=== PATIENT | male | born 1980 | race Caucasian/White ===

== ENCOUNTER 2019-03-08 22:59 | Observation (INO) | payer OTHER ==
[2019-03-08 23:56] LABS: Absolute Lymphocytes (CBC) 2.4 K/uL (0.7-4.9); Basophils % 0.8 % (0-1.3); Hematocrit 45.2 % (39.6-49.0); Lymphocytes % 28.1 % (15.3-44.8); MPV 10.7 fL (7.6-11.3); RBC Red Blood Cell Count 5.34 M/uL (4.33-5.43)
[2019-03-09 00:25] LABS: ALT/SGPT 84 U/L (12-78); AST/SGOT 29 U/L (15-37); Albumin 4.1 g/dL (3.4-5.0); Alkaline Phosphatase 51 U/L (45-117); BUN Blood Urea Nitrogen 20 mg/dL (7-18); Bicarbonate 31 mmol/L (21-32); Bilirubin Direct 0.2 mg/dL (0-0.2); Bilirubin Total 0.7 mg/dL (0.2-1.0); Glucose Level 132 mg/dL (74-106); Magnesium 2.2 mg/dL (1.8-2.4); NT PRO-BNP 26 pg/mL (<125); Protein, Total 7.3 g/dL (6.4-8.2); Sodium Level 139 mmol/L (136-145); Troponin (Emerg Dept Use Only) < 0.02 ng/mL (0.0-0.045)
[2019-03-09 00:26] LABS: Potassium 2.9 mmol/L (3.5-5.1)
[2019-03-09 00:27] LABS: Protime INR 0.97
--- NOTE | 2019-03-09 01:46 | EDPHYS ---
Physician Documentation [facility] Name: Chong Rosario Age: 39 yrs Sex: Male : 1980 Arrival Date: 03/08/2019 Time: 23:01 Bed 14 Private MD: ED Physician Akil Thomason HPI: 03/08 23:48 This 39 yrs old Male presents to ER via Ambulatory with complaints of Chest jm Pain. 23:48 The patient or guardian reports chest pain that is located primarily in the substernal [facility] area. The pain does not radiate. Associated signs and symptoms: Pertinent positives:. The chest pain is described as aching, sharp. Duration: The patient or guardian reports a single episode. Modifying factors: The symptoms are alleviated by nothing. the symptoms are aggravated by nothing. This is a 39 year old male with a history of htn that presents to the ED with complaints of left sided chest pain beginning last night along with lightheadedness. Patient states he was recently diagnosed with hypertension. Denies history of CAD, denies smoking. . Historical: - Allergies: 23:10 No Known Allergies; aa1 - Home Meds: 23:10 unknown BP medication [Active]; aa1 - PMHx: 23:10 Hypertension; aa1 - PSHx: 23:10 None; aa1 - Immunization history:: Flu vaccine is not up to date. - Social history:: Smoking status: Patient/guardian denies using tobacco. - Ebola Screening: : Patient denies exposure to infectious person Patient denies travel to an Ebola-affected area in the 21 days before illness onset. ROS: 23:48 Constitutional: Negative for fever, chills, and weight loss. jmm 23:48 Abdomen/GI: Negative for abdominal pain, nausea, vomiting, diarrhea, and constipation, Back: Negative for injury and pain. 23:48 Cardiovascular: Positive for chest pain. 23:48 All other systems are negative. Exam: 23:48 Constitutional: This is a well developed, well nourished patient who is awake, alert, jmm and in no acute distress. Head/Face: atraumatic. Eyes: EOMI, no conjunctival erythema appreciated ENT: Moist Mucus Membranes Neck: Trachea midline, Supple Chest/axilla: Normal chest wall appearance and motion. 23:48 Abdomen/GI: Non distended, soft Back: Normal ROM Skin: General appearance color normal MS/ Extremity: Moves all extremities, no obvious deformities appreciated, no edema noted to the lower extremities Neuro: Awake and alert, normal gait Psych: Behavior is normal, Mood is normal, Patient is cooperative and pleasant 23:48 Cardiovascular: Rate: normal, Rhythm: regular, Pulses: no pulse deficits are appreciated. 23:48 Respiratory: the patient does not display signs of respiratory distress, Respirations: normal, Breath sounds: are clear throughout. Vital Signs: 23:10 BP 173 / 112; Pulse 62; Resp 18; Temp 98.0; Pulse Ox 98% on R/A; Weight 81.65 kg (R); aa1 Height 5 ft. 10 in. (177.80 cm); Pain 4/10; 23:58 BP 147 / 101; Pulse 63; Resp 18; Pulse Ox 100% ; ea 03/09 00:32 BP 126 / 97; Pulse 62; Resp 18; Pulse Ox 99% on R/A; ea 02:18 BP 128 / 94; Pulse 70; Resp 18; Pulse Ox 99% on R/A; ea 03:05 BP 133 / 97; Pulse 56; Resp 18; Pulse Ox 98% on R/A; ea 03:41 Temp 97.8; ea 03/08 23:10 Body Mass Index 25.83 (81.65 kg, 177.80 cm) aa1 MDM: 03/08 23:35 Patient medically screened. [facility] 03/09 01:44 Data reviewed: vital signs, nurses notes. Counseling: I had a detailed discussion with [facility] the patient and/or guardian regarding: the historical points, exam findings, and any diagnostic results supporting the discharge/admit diagnosis, lab results, radiology results, the need for further work-up and treatment in the hospital. ED course: I discussed the patient with Dr. Guillen whom accepted admission. . 03/08 23:14 Order name: Basic Metabolic Panel; Complete Time: 00:28 [facility] 03/08 23:14 Order name: CBC with Diff; Complete Time: 23:57 [facility] 03/08 23:14 Order name: LFT's; Complete Time: 00:28 [facility] 03/08 23:14 Order name: Magnesium; Complete Time: 00:28 [facility] 03/08 23:14 Order name: NT PRO-BNP; Complete Time: 00:28 [facility] 03/08 23:14 Order name: PT-INR; Complete Time: 00:28 [facility] 03/08 23:08 Order name: EKG; Complete Time: 23:09 [facility] 03/08 23:08 Order name: EKG - Nurse/Tech; Complete Time: 23:41 [facility] 03/08 23:14 Order name: Troponin (emerg Dept Use Only); Complete Time: 00:28 [facility] 03/08 23:14 Order name: XRAY Chest (1 view) [facility] 03/08 23:14 Order name: Cardiac monitoring; Complete Time: 23:41 [facility] 03/08 23:14 Order name: IV Saline Lock; Complete Time: 23:41 [facility] 03/08 23:56 Order name: D-Dimer; Complete Time: 00:28 [facility] 03/08 23:14 Order name: Labs collected and sent; Complete Time: 23:41 [facility] 03/08 23:14 Order name: O2 Per Protocol; Complete Time: 23:46 [facility] 03/08 23:14 Order name: O2 Sat Monitoring; Complete Time: 23:41 [facility] Administered Medications: No medications were administered Disposition: 03/09/19 01:45 Hospitalization ordered by Rober Guillen for Observation. Preliminary diagnosis is Chest pain, unspecified. - Bed requested for Telemetry/MedSurg (observation). - Status is Observation. ea - Condition is Stable. - Problem is new. - Symptoms have improved. UTI on Admission? No Addendum: 03/11/2019 21:55 Co-signature as Attending Physician, Akil Thomason MD I agree with the assessment and t w4 plan of care. Signatures: Dispatcher [employer] [facility] Ashleigh Guzman RN RN aa1 Jt Darnell PA PA [facility] Hollie Ocampo RN RN cg Nikki Castaneda RN RN ea Wadley, Terrence, MD MD tw4 Corrections: (The following items were deleted from the chart) 03/08 23:56 23:53 D-DIMER+COAG.LAB.BRZ ordered. [facility] 03/09 02:50 01:45 Hospitalization Ordered by Rober Guillen for Observation. Preliminary diagnosis cg is Chest pain, unspecified. Bed requested for Telemetry/MedSurg (observation). Status is Observation. Condition is Stable. Problem is new. Symptoms have improved. UTI on Admission? No. jmm 03:55 02:50 03/09/2019 01:45 Hospitalization Ordered by Rober Guillen for Observation. ea Preliminary diagnosis is Chest pain, unspecified. Bed requested for Telemetry/MedSurg (observation). Status is Observation. Condition is Stable. Problem is new. Symptoms have improved. UTI on Admission? No. cg
--- NOTE | 2019-03-09 01:46 | ER ---
Nurse's Notes [facility] Name: Chong Rosario Age: 39 yrs Sex: Male : 1980 Arrival Date: 03/08/2019 Time: 23:01 Bed 14 Private MD: Diagnosis: Chest pain, unspecified Presentation: 03/08 23:08 Presenting complaint: Patient states: pain under his L breast since yesterday that aa1 radiates to his back and today began to radiate to his sternum. Denies any other symptoms. Transition of care: patient was not received from another setting of care. Onset of symptoms was March 07, 2019. Risk Assessment: Do you want to hurt yourself or someone else? Patient reports no desire to harm self or others. Initial Sepsis Screen: Does the patient meet any 2 criteria? No. Patient's initial sepsis screen is negative. Does the patient have a suspected source of infection? No. Patient's initial sepsis screen is negative. Care prior to arrival: None. 23:08 Method Of Arrival: Ambulatory aa1 23:08 Acuity: RAY 2 aa1 Triage Assessment: 23:10 General: Appears in no apparent distress. comfortable, Behavior is calm, cooperative, aa1 appropriate for age. Historical: - Allergies: 23:10 No Known Allergies; aa1 - Home Meds: 23:10 unknown BP medication [Active]; aa1 - PMHx: 23:10 Hypertension; aa1 - PSHx: 23:10 None; aa1 - Immunization history:: Flu vaccine is not up to date. - Social history:: Smoking status: Patient/guardian denies using tobacco. - Ebola Screening: : Patient denies exposure to infectious person Patient denies travel to an Ebola-affected area in the 21 days before illness onset. Screenin:28 Abuse screen: Denies threats or abuse. Nutritional screening: No deficits noted. ea Tuberculosis screening: No symptoms or risk factors identified. Fall Risk None identified. Assessment: 23:27 Reassessment: Patient and/or family updated on plan of care and expected duration. Pain ea level reassessed. Patient is alert, oriented x 3, equal unlabored respirations, skin warm/dry/pink. General: Appears in no apparent distress. Behavior is calm, cooperative, appropriate for age. Pain: Complains of pain in chest. Neuro: Level of Consciousness is awake, alert, obeys commands, Oriented to person, place, time, situation. Cardiovascular: Patient's skin is warm and dry. Respiratory: Airway is patent Respiratory effort is even, unlabored, Respiratory pattern is regular, symmetrical. Derm: Skin is pink, warm \T\ dry. 03/09 00:34 Reassessment: Patient and/or family updated on plan of care and expected duration. Pain ea level reassessed. Patient is alert, oriented x 3, equal unlabored respirations, skin warm/dry/pink. Provider at bedside updating pt on plan of care. 01:00 Reassessment: Patient and/or family updated on plan of care and expected duration. Pain ea level reassessed. Patient is alert, oriented x 3, equal unlabored respirations, skin warm/dry/pink. 02:00 Reassessment: Patient and/or family updated on plan of care and expected duration. Pain ea level reassessed. Patient is alert, oriented x 3, equal unlabored respirations, skin warm/dry/pink. 03:40 Reassessment: Patient and/or family updated on plan of care and expected duration. Pain ea level reassessed. Patient is alert, oriented x 3, equal unlabored respirations, skin warm/dry/pink. Report called to Nalini DUMONT. 03:53 Reassessment: Patient and/or family updated on plan of care and expected duration. Pain ea level reassessed. Patient is alert, oriented x 3, equal unlabored respirations, skin warm/dry/pink. Pt admitted to second floor, pt taken via wheelchair, pt tolerating well. Vital Signs: 03/08 23:10 BP 173 / 112; Pulse 62; Resp 18; Temp 98.0; Pulse Ox 98% on R/A; Weight 81.65 kg (R); aa1 Height 5 ft. 10 in. (177.80 cm); Pain 4/10; 23:58 BP 147 / 101; Pulse 63; Resp 18; Pulse Ox 100% ; ea 03/09 00:32 BP 126 / 97; Pulse 62; Resp 18; Pulse Ox 99% on R/A; ea 02:18 BP 128 / 94; Pulse 70; Resp 18; Pulse Ox 99% on R/A; ea 03:05 BP 133 / 97; Pulse 56; Resp 18; Pulse Ox 98% on R/A; ea 03:41 Temp 97.8; ea 03/08 23:10 Body Mass Index 25.83 (81.65 kg, 177.80 cm) aa1 ED Course: 03/08 23:01 Patient arrived in ED. es 23:09 Triage completed. aa1 23:09 Jt Darnell PA is PHCP. jm 23:09 Akil Thomason MD is Attending Physician. jmm 23:10 Arm band placed on right wrist. Patient placed in an exam room, on a stretcher. aa1 23:12 Nikki Castaneda, RN is Primary Nurse. ea 23:28 Patient has correct armband on for positive identification. Bed in low position. Call ea light in reach. Side rails up X2. bus driver/monitor on. Pulse ox on. NIBP on. 23:29 Patient maintains SpO2 saturation greater than 95% on room air. ea 23:37 XRAY Chest (1 view) In Process Unspecified. EDMS 23:40 Inserted saline lock: 20 gauge in right forearm, using aseptic technique. Blood oe collected. 03/09 01:45 Rober Guillen is Hospitalizing Provider. [facility] 03:04 No provider procedures requiring assistance completed. Patient admitted, IV remains in ea place. Administered Medications: No medications were administered Outcome: 01:45 Decision to Hospitalize by Provider. [facility] 02:00 Instructed on the need for admit, Demonstrated understanding of instructions. ea 03:39 Admitted to Med/surg accompanied by tech, room 218, with chart, Report called to amy Gayle RN 03:39 Condition: stable 03:55 Patient left the ED. ea Signatures: Dispatcher [employer] Ashleigh Harrison, RN RN aa1 Jt Darnell PA PA Laya Stroud Orlando oe Antunez, Elena, RN RN ea
--- NOTE | 2019-03-09 01:52 | P.HP ---
Certification for Inpatient Patient admitted to: Observation With expected LOS: <2 Midnights Practitioner: I am a practitioner with admitting privileges, knowledge of patient current condition, hospital course, and medical plan of care. Services: Services provided to patient in accordance with Admission requirements found in Title 42 Section 412.3 of the Code of Federal Regulations Patient History Date of Service: 03/09/19 Reason for admission: Chest pain History of Present Illness: 39-year-old gentleman recently diagnosed with hypertension presented to the emergency department with a complaint of intermittent chest pain of onset yesterday. Patient described a dull chest pain, intensity about 3/10, associated with chest tightness the lightheadedness. These episodes occurred 3 times. Patient denies shortness of breath. He denied palpitation. Each episode spontaneously resolved. His initial troponin in the ED is negative. EKG demonstrates incomplete right bundle branch block with some T-wave flattening in the chest leads. His potassium level is 2.9. Chest x-ray unremarkable. Patient is placed under observation for ACS rule out. Allergies No Known Allergies Allergy (Unverified 03/09/19 04:10) Home medications list reviewed: Yes Home Medications: Atenolol/Chlorthalidone [Atenolol-Chlorthalidone 50-25] 1 tab PO DAILY 03/09/19 - Past Medical/Surgical History -: Hypertension -: None - Family History Family History: Reviewed- Non-Contributory (No family history of heart disease) - Family History Father -: Hypertension - Social History Smoking Status: Never smoker Alcohol use: Yes CD- Drugs: No Review of Systems Other: General: No fever, no malaise, no unintentional weight loss. Eyes: No eye discharge, Respiratory: No cough, no shortness of breath. GI: No abdominal pain, no nausea no vomit, no constipation, no diarrhea. Genitourinary: No dysuria, no urinary frequency, no incontinence, no hematuria. Musculoskeletal: No joint pains, or joint swelling, no gait instability. Neurology: No headache, no asymmetric, weakness, no problem with swallowing. Except as documented, all other systems reviewed and negative. Physical Examination - Physical Exam General: Alert, In no apparent distress, Oriented x3 HEENT: Normocephalic, PERRLA, Mucous membr. moist/pink Neck: Supple, JVD not distended, No Thyromegaly Respiratory: Clear to auscultation bilaterally, Normal air movement Cardiovascular: No edema, Normal pulses, Regular rate/rhythm, Normal S1 S2, No murmurs Capillary refill: <2 Seconds Gastrointestinal: Normal bowel sounds, Soft and benign, Non-distended, No tenderness Musculoskeletal: No swelling Integumentary: No rashes, No erythema Neurological: Normal speech, Normal strength at 5/5 x4 extr, Cranial nerves 3- 12 intact - Studies Laboratory Data (last 24 hrs) 03/08/19 23:37: PT 11.5, INR 0.97 03/08/19 23:37: WBC 8.5, Hgb 16.0, Hct 45.2, Plt Count 158 03/08/19 23:37: Sodium 139, Potassium 2.9 L*, BUN 20 H, Creatinine 1.02, Glucose 132 H, Magnesium 2.2, Total Bilirubin 0.7, AST 29, ALT 84 H, Alkaline Phosphatase 51 Assessment and Plan - Problems (Diagnosis) (1) Chest pain Current Visit: Yes Status: Acute (2) Essential hypertension Current Visit: Yes Status: Chronic (3) Hypokalemia Current Visit: Yes Status: Acute - Plan Place under observation Telemetry monitoring Trend troponin x3 Aspirin, lipitor Check lipid profile. Echocardiogram Patient given oral potassium supplementation for hypokalemia. Check BMP in a.m. Continue home antihypertensives. - Advance Directives Does patient have a Living Will: No Does patient have a Durable POA for Healthcare: No
[2019-03-09] MEDS ORDERED: NITROGLYCERIN 0.4 MG/TAB SL PRN (04:10)
[2019-03-09 04:13] VITALS: BMI 26.2
[2019-03-09 05:05] LABS: Absolute Lymphocytes (CBC) 2.8 K/uL (0.7-4.9); Basophils % 0.9 % (0-1.3); Hematocrit 45.6 % (39.6-49.0); Lymphocytes % 29.2 % (15.3-44.8); MPV 10.8 fL (7.6-11.3); RBC Red Blood Cell Count 5.38 M/uL (4.33-5.43)
[2019-03-09 05:16] VITALS: O2SAT 96
[2019-03-09 05:28] LABS: BUN Blood Urea Nitrogen 19 mg/dL (7-18); Bicarbonate 29 mmol/L (21-32); Glucose Level 96 mg/dL (74-106); HDL Cholesterol 40 mg/dL (40-60); LDL Cholesterol, Calculated 88 (<130); Sodium Level 137 mmol/L (136-145); Troponin I < 0.02 ng/mL (0.0-0.045)
[2019-03-09] MEDS ORDERED: POTASSIUM CL SA 10 MEQ TAB PO ONE ×2 (05:31→09:32)
[2019-03-09 05:48] VITALS: BP 147/103
--- NOTE | 2019-03-09 08:09 | EKG ---
Test Date: 2019-03-08 Test Time: 23:27:34 Home Supervisor: JUAN MEASUREMENT RESULTS: Intervals: Rate: 63 HI: 166 QRSD: 114 QT: 420 QTc: 429 [place]: P: 33 HI: 166 QRS: 13 T: 95 INTERPRETIVE STATEMENTS: Normal sinus rhythm Incomplete right bundle branch block Non specific T wave abnormality Abnormal ECG No previous ECG available for comparison Electronically Signed On 03-09-19 08:09:07 TELEVISION REPAIR TEACHER by Mikal Young
[2019-03-09] MEDS ORDERED: METOPROLOL TAR 50 MG TAB PO SCH (09:00)
[2019-03-09] MEDS ORDERED: ENOXAPARIN 40 MG/0.4 ML SQ SCH (09:00)
[2019-03-09] MEDS ORDERED: ASPIRIN EC 81 MG TAB PO SCH (09:00)
--- NOTE | 2019-03-09 10:41 | RAD REPORT ---
EXAM DESCRIPTION: RAD - Chest Single View - 03/08/2019 11:37 pm CLINICAL HISTORY: CHEST PAIN Chest pain. COMPARISON: No comparisons FINDINGS: Portable technique limits examination quality. The lungs are grossly clear. The heart is normal in size. No displaced fractures. IMPRESSION: No acute intrathoracic process suspected.
--- NOTE | 2019-03-09 13:23 | CON ---
Identification: 39-year-old man. Chief Complaint: Chest pain. History Of Present Illness: Mr. Rosario's chest pain began night 2 days ago, very atypical yon[address] st pain under the left axilla, under his left nipple. Sometimes it radiates to the chest. It does n ot feel painful at all. It is tightness or even like muscle cramping. He is not having it now. He has had 3 episodes altogether lasting a few hours and since he has been in the hospital, EKGs and enz ymes do not suggest infarction, injury or ischemia. His potassium was 2.9 yesterday, it is 3.0 today . His EKG shows incomplete right bundle-branch block and flat T-waves. Total cholesterol 181, LDL 8 8, blood sugar 96. Physical Examination: General: He is 5 feet 10 inches, 182 pounds. HEENT: Normal. Lungs: Clear. Heart: Within normal limits. Abdomen: Soft. Extremities: Normal. No cyanosis, clubbing, or edema. Distal pulses normal. Impression: This is not an acute coronary syndrome. I think he could be discharged today. [facility] atenolol with chlorthalidone, a combination medicine. I think he s hould be started on potassium supplements. Instructed to see his usual doctor in [place] and have a stress test sometime in the future and recheck potassium levels. LORRAINE Voice ID: [id number] Report ID: [id number]
[2019-03-09 13:54] VITALS: TEMP 97
--- NOTE | 2019-03-10 02:12 | DS ---
Date of Discharge: 03/09/2019 Education Professor: Dr. Young, Cardiology. Discharge Diagnoses: 1.Chest pain, acute coronary syndrome ruled out. 2.Essential hypertension, stable. 3.Hypokalemia, replaced. 4.Hypertriglyceridemia. Hospital Course: Patient is a 39-year-old male with past medical history of recently diagnosed hyper tension, comes in with chest pain, lightheadedness and chest tightness, was episodic ongoing for the past several days. The patient's EKG showed incomplete right bundle branch block with T-wave flatten ing. His potassium was low. Patient was started on chlorthalidone and atenolol combination. Patiestuardo t states he has been worked up for secondary hypertension by his primary care physician. Patient was admitted to the hospital for further evaluation. His D-dimer was negative. Cardiac enzymes were ne gative x3. Potassium was replaced. Triglycerides were elevated. Patient was seen by Cardiology, Dr Angie Young, who recommended outpatient stress test. The patient's pain had resolved. He was then nacho red for discharge, sent home in a stable condition. Diet: Heart healthy. Activity: As tolerated. Medications: As per medication reconciliation list. Patient to have repeat potassium level in 1 wee k. Followup: Follow up with primary care physician in 2 to 3 days. Follow up with disaster recovery manager, Dr. Angus membreno in 2 weeks. Return to ER for worsening condition. Follow up with disaster recovery manager for outpatient s tress test. Physical Examination: General: Awake alert oriented x3. No acute distress. CV: S1, S2. No murmurs. Respiratory: Moving air well bilaterally. Abdomen: Soft, nontender, nondistended. Positive bowel sounds. Extremities: No clubbing, cyanosis, or edema. Neurologic: Nonfocal. SA/MODL Voice ID: [id number] Report ID: [id number]
[2019-03-10] MEDS ORDERED: CHLORTHALIDONE PO SCH (09:00)
[2019-03-10] MEDS ORDERED: ATENOLOL PO SCH (09:00)
== END 2019-03-09 10:38 | disposition home or self-care (01) ==
LOC: ER 22:59 → ERHOLD 03-09 02:10 → 2ND 03-09 03:41
PROVIDERS: ADMIT Internal Medicine; ATTEND Internal Medicine
DX: R07.9 Chest pain, unspecified (principal); I10 Essential (primary) hypertension; E87.6 Hypokalemia; E78.1 Pure hyperglyceridemia
CPT/HCPCS: 93005; 85025 ×2; 80048 ×2; 36415; 83735; 85610; 80061; 85379; 80076; 84484 ×3; 83880; 71045; 94760; 99285; G0378 ×2; J1650